=== PATIENT | female | born 1975 | race Caucasian/White ===

== ENCOUNTER 2020-08-28 10:28 | Emergency (ER) | payer MEDICAID ==
[2020-08-28] MEDS ORDERED: Penicillin V Potassium 250 MG Tab ONE (11:00)
--- NOTE | 2020-08-28 11:06 | EDM.PDOC ---
ED HPI GENERAL MEDICAL PROBLEM - General Chief Complaint: General Stated Complaint: abcess tooth Time Seen by Provider: 08/28/20 10:45 Source of Information: Reports: Patient History Limitations: Reports: No Limitations - History of Present Illness INITIAL COMMENTS - FREE TEXT/NARRATIVE: patient started to have pressure on left upper gum line and pain in a preciously chipped tooth on . Increased pressure and pain overnight, controlled with ibuprofen. States it is similar in feeling to a past dental abscess. Quality: Reports: Pressure Improves with: Reports: Medication Worsens with: Reports: None Associated Symptoms: Reports: No Other Symptoms Treatments SAMPLE DRILLER: Reports: NSAIDS - Related Data Home Meds: Home Meds Penicillin V Potassium [Veetids] 500 mg PO Q6H 4 Days #16 tab 08/28/20 [Rx] Past Medical History [employer] History: Reports: Social & Family History - Tobacco Use Tobacco Use Status *Q: Never Tobacco User Second Hand Smoke Exposure: No - Caffeine Use Caffeine Use: Reports: Coffee, Soda - Alcohol Use Days Per Week of Alcohol Use: 1 Number of Drinks Per Day: 2 Total Drinks Per Week: 2 - Recreational Drug Use Recreational Drug Use: No ED ROS GENERAL - Review of Systems Review Of Systems: See Below Constitutional: Reports: No Symptoms HEENT: Reports: Dental Pain Respiratory: Reports: No Symptoms Cardiovascular: Reports: No Symptoms Endocrine: Reports: No Symptoms GI/Abdominal: Reports: No Symptoms : Reports: No Symptoms Musculoskeletal: Reports: No Symptoms Skin: Reports: No Symptoms Neurological: Reports: No Symptoms Psychiatric: Reports: No Symptoms Hematologic/Lymphatic: Reports: No Symptoms Immunologic: Reports: No Symptoms ED EXAM, GENERAL - Physical Exam Exam: See Below Exam Limited By: No Limitations General Appearance: Alert, No Apparent Distress Ears: Normal External Exam Nose: Normal Inspection Throat/Mouth: Normal Inspection, Normal Lips, Normal Teeth, Normal Oropharynx, Normal Voice, No Airway Compromise, Inflammation Head: Atraumatic Neck: Normal Inspection, Full Range of Motion. No: Lymphadenopathy (R), Lympha denopathy (L) Respiratory/Chest: No Respiratory Distress Cardiovascular: Regular Rate, Rhythm Back Exam: Full Range of Motion Neurological: Alert, Oriented Psychiatric: Normal Affect, Normal Mood Skin Exam: Warm, Dry, Intact Lymphatic: No Adenopathy Course - Vital Signs Last Recorded V/S: Last Vital Signs Temp 97.0 F 08/28/20 10:43 Pulse 80 08/28/20 10:43 Resp 16 08/28/20 10:43 BP 125/73 08/28/20 10:43 Pulse Ox 100 08/28/20 10:43 Departure - Departure Time of Disposition: 11:10 Disposition: Home, Self-Care 01 Condition: Good Clinical Impression: Dental abscess - Discharge Information *PRESCRIPTION DRUG MONITORING PROGRAM REVIEWED*: Not Applicable *COPY OF PRESCRIPTION DRUG MONITORING REPORT IN PATIENT FANG: Not Applicable Prescriptions: Penicillin V Potassium [Veetids] 500 mg PO Q6H 4 Days #16 tab Referrals: PCP,None [Primary Care Provider] - Additional Instructions: Follow up this week. Start the penicillin, continue ibuprofen for pain. Return to ED for any increased or new concerning symptoms. Sepsis Event Note (ED) - Evaluation Sepsis Screening Result: No Definite Risk - Focused Exam Vital Signs: Vital Signs Temp Pulse Resp BP Pulse Ox 08/28/20 10:43 97.0 F 80 16 125/73 100
== END 2020-08-28 11:11 | disposition home or self-care (01) ==
LOC: LB.ED 10:28
DX: K04.7 Periapical abscess without sinus (principal)
CPT/HCPCS: 99282; A9270-GY